=== PATIENT | female | born 1945 | race Caucasian/White ===

== ENCOUNTER 2020-07-27 12:53 | Outpatient (CLI) | payer OTHER, SELFPAY ==
--- NOTE | 2020-07-27 12:58 | ECG_ITS ---
Measurements Intervals [place] Rate: 68 P: 18 CO: 211 QRS: -24 QRSD: 119 T: 20 QT: 396 QTc: 423 Interpretive Statements SINUS RHYTHM WITH FIRST DEGREE AV BLOCK LOW QRS VOLTAGE IN PRECORDIAL LEADS INCOMPLETE RIGHT BUNDLE BRANCH BLOCK VOLTAGE CRITERIA FOR LVH BORDERLINE T WAVE ABNORMALITY- INFERIOR LEADS ABNORMAL ECG Electronically Signed On 07-27-2020 13:14:41 CDT by Jayson Lopes D.O.
== END 2020-07-27 12:54 | disposition home or self-care (01) ==
PROVIDERS: PCP Internal Medicine; Visit Provider Urology
DX: N39.3 Stress incontinence (female) (male) (principal); Z87.891 Personal history of nicotine dependence; I45.10 Unspecified right bundle-branch block
CPT/HCPCS: 87077; 87086; 87088; 93005

== ENCOUNTER 2020-08-01 02:03 | Outpatient (CLI) | payer OTHER, SELFPAY ==
[2020-08-01 18:39] LABS: SARS-CoV-2 RNA PCR Negative
== END 2020-08-01 02:04 | disposition home or self-care (01) ==
LOC: ANHCOVIDDT 02:04
PROVIDERS: PCP Internal Medicine; Visit Provider Urology
DX: Z01.812 Encounter for preprocedural laboratory examination (principal); Z20.828 Contact with and (suspected) exposure to other viral communicable diseases
CPT/HCPCS: 87635; C9803; U0003

== ENCOUNTER 2020-08-03 01:27 | Day surgery (SDC) | payer OTHER, SELFPAY ==
[2020-07-24 11:26] VITALS: BMI 47.9
--- NOTE | 2020-07-29 11:05 | PM.IMHP ---
H&P: HPI History of Present Illness Date/Time: 07/29/20 11:05 Chief complaint: Stress Incontinence Narrative: Gracie Gonzales is a 74 year old female with the stress incontinence Review of Systems Review of Systems: All systems reviewed & are unremarkable except as noted in HPI and below PMFSH Social History Social History Smoking status: Former smoker Tobacco type: cigarettes Additional smoking assessment comments: 1PK/DAY/AGE [age] Substance use: never Spiritual care concerns: No Meds Home Medications and Allergies Home Medications Medication Instructions Recorded Confirmed Type Ca-D3-mag ar-bkws-dim-dsutin-bor 1 tablet PO DAILY 07/24/20 07/24/20 History [Calcium 600-D3 Plus (mag-zinc)] celecoxib 200 mg DAILY 07/24/20 07/24/20 History citalopram 20 mg PO DAILY 07/24/20 07/24/20 History cyanocobalamin (vitamin B-12) 5,000 mcg PO DAILY 07/24/20 07/24/20 History levothyroxine 88 mcg DAILY 07/24/20 07/24/20 History omega 8-wev-znt-fish oil [[place]-3 1 cap PO DAILY 07/24/20 07/24/20 History Fish Oil] Allergies Allergy/AdvReac Type Severity Reaction Status Date / Time No Known Allergies Allergy Verified 07/24/20 11:12 Exam Const: General: no acute distress HENMT: Mouth: Yes moist mucous membranes Eyes: General: appearance normal, both eyes and all related structures Neck: Neck: supple Resp: Effort & Inspection: normal respiratory effort GI: GI Palp: Yes Soft to palpation Skin: General skin exam: normal color Neuro: Cognition (Neuro): normal cognition Extrem: General: normal to inspection Assessment and Plan Assessment and plan (1) FLASH (stress urinary incontinence, female): Code(s): N39.3 - Stress incontinence (female) (male) Status: Acute Assessment and Plan: urethral sling
[2020-08-03] VITALS (8 sets, daily range): BP systolic 97–196; BP diastolic 64–91; PULSE 58–78; RESP 10–18; TEMP 36.1–36.7; O2SAT 98–100
--- NOTE | 2020-08-03 07:19 | WPDHPUPDATE1 ---
History and Physical Update Update Date/Time: 08/03/20 07:19 History and Physical has been reviewed, including an updated exam of the patient. There are NO changes in the patient's condition. Risks, benefits, and alternatives have been discussed and questions answered. Patient agrees to proceed with procedure.
[2020-08-03] MEDS: LACTATED RINGERS 1,000 ML 30 ML IV CONT ×2 (09:20→11:12)
--- NOTE | 2020-08-03 09:25 | P.PNAN_ITS ---
Anes - Initial Pre Proc Eval Procedure: Operation Date: 08/03/20 10:45 Proposed Procedures p Urethral Sling - Wes Peraza MD Date/Time: 08/03/20 09:25 Surgeon: Wes Peraza MD Pre Op Diagnosis: Stress Incontinence Patient Data Age: 74 Gender: F Height: 5 ft 3 in Weight: 122.7 kg Allergies Allergy/AdvReac Type Severity Reaction Status Date / Time No Known Allergies Allergy Verified 08/03/20 09:26 Home Medications Medication Instructions Recorded Confirmed Type Ca-D3-mag mq-rdkp-rbs-dustin-bor 1 tablet PO DAILY 07/24/20 07/24/20 History [Calcium 600-D3 Plus (mag-zinc)] celecoxib 200 mg DAILY 07/24/20 07/24/20 History citalopram 20 mg PO DAILY 07/24/20 07/24/20 History cyanocobalamin (vitamin B-12) 5,000 mcg PO DAILY 07/24/20 07/24/20 History levothyroxine 88 mcg DAILY 07/24/20 07/24/20 History omega 1-afm-owj-fish oil [[place]-3 1 cap PO DAILY 07/24/20 07/24/20 History Fish Oil] Patient hx anesthesia problems: none Family hx anesthesia problems: none [facility] Past Medical History Medical History (Updated 08/03/20 @ 09:26 by Keenan Mcintyre MD) Hypothyroidism Morbid obesity Surgical History Surgical History (Updated 08/03/20 @ 09:28 by Keenan Mcintyre MD) History of section History of total knee arthroplasty Social History Social History Smoking status: Former smoker Tobacco type: cigarettes Additional smoking assessment comments: 1PK/DAY/AGE [age] Alcohol use details: MAYBE 1 GLASS WINE A MONTH Substance use: never Living arrangements: alone Spiritual care concerns: No Anes - Eval Final PreProcedure Day of Procedure 08/03/20 09:25 Patient weight: morbidly obese Heart: regular rate and rhythm Lungs: clear to auscultation Airway: Mallampati scale class II Neurological: alert and oriented Last oral intake: >/= 8 hours ASA classification: III Emergent: no Anesthetic plan: proceed Anesthesia type and monitoring: general LMA and standard monitoring Informed Consent: The patient's anesthetic plan and its attendant risks and benefits were discussed with the patient/family/POA. Questions were solicited and answers provided to the satisfaction of the patient/family/POA.
[2020-08-03] MEDS: ceFAZolin 3 GM/D5W 100 ML 100 ML IVPB (10:08)
[2020-08-03] MEDS: BUPIVACAINE/EPINEPHRINE 0.25% 50 ML VIAL INFILTRATE (10:28)
--- NOTE | 2020-08-03 10:50 | PM.PROC ---
Procedure Note - Detailed Date of procedure: 08/03/20 Pre-op diagnosis: Stress Incontinence Stress urinary incontinence Post-op diagnosis: same Procedure performed: Transobturator Mid-urethral sling Cystoscopy Description of procedure: This is a patient with confirmed stress urinary incontinence. She desires correction. She understands the risks of bleeding, infection, damage to the urinary tract, lack of cure of stress incontinence, recurrence of stress incontinence, postoperative voiding dysfunction including incontinence and retention, need for ancillary procedures to loosen remove the sling, postoperative voiding dysfunction including retention and overactive bladder, hip and leg pain, dyspareunia, mesh related complications including exposure and extrusion. She agrees to proceed. She understands it will not help overactive bladder symptoms if present. She was correctly identified and informed consent obtained. She is brought to the operating room. She was given appropriate anesthesia. She was placed in the dorsal lithotomy position. All pressure points were padded. She was given appropriate perioperative antibiotics and a time-out performed. A De Jesus catheter is placed. I marked out the thigh incisions anesthetize the skin and made those incisions. I anesthetized the anterior vaginal wall over the mid urethra. I made a 1 cm incision. I dissected out laterally taking great care not to injure the urethra or the vaginal wall. Passed the helical trocars 1st on the left and then on the right from the thigh incision towards the vaginal incision. Sling was connected to the trocars and brought out through the thigh incision. I tensioned the sling appropriately. I cut and removed the plastic sheaths. I closed the incision with 2 0 Vicryl. I then performed cystoscopy. There was no surgical artifact or abnormalities inside the bladder. The urethra was normal without surgical artifact. I cut the excess sling material. I closed the incisions with glue. She was awakened and transferred to the PACU in stable condition. Implants: Mid urethral sling Surgeon: Wes Peraza MD Drains: No Packing: No Pathology: none sent Complications: No immediate complications Condition: stable Disposition: PACU
== END 2020-08-03 12:20 | disposition home or self-care (01) ==
PROVIDERS: PCP Internal Medicine; Visit Provider Urology
PROC: (CPT 57288; principal; 2020-08-03 10:45)
DX: N39.3 Stress incontinence (female) (male) (principal); Z87.891 Personal history of nicotine dependence; E03.9 Hypothyroidism, unspecified; E66.01 Morbid (severe) obesity due to excess calories; Z68.42 Body mass index [BMI] 45.0-49.9, adult
CPT/HCPCS: 57288; A9270; C1771; J0690; J2370; J2704; J3010; J7030; J7120

== ENCOUNTER 2022-05-19 00:17 | Day surgery (SDC) | payer OTHER, SELFPAY ==
[2022-05-02 13:18] VITALS: BMI 42.3
--- NOTE | 2022-05-19 08:36 | P.PNAN_ITS ---
Anes - Initial Pre Proc Eval Procedure: Operation Date: 05/19/22 11:30 Proposed Procedures p Screening Colonoscopy - Jcarlos Park MD Date/Time: 05/19/22 08:36 Surgeon: Jcarlos Park MD Pre Op Diagnosis: hx of colon polyps Patient Data Age: 76 Gender: F Height: 1.63 m Weight: 112 kg Allergies Allergy/AdvReac Type Severity Reaction Status Date / Time No Known Allergies Allergy Verified 05/19/22 09:35 Home Medications Medication Instructions Recorded Confirmed Type Ca 600 mg-D3 20 mcg-mag oxide 50 1 tablet PO DAILY 07/24/20 05/19/22 History zc-Ei-rpeyvr-manganese-boron tablet (Calcium 600-D3 Plus (mag-zinc)) celecoxib 200 mg capsule 200 mg DAILY 07/24/20 05/19/22 History citalopram 20 mg tablet 20 mg PO DAILY 07/24/20 05/19/22 History levothyroxine 100 mcg tablet 88 mcg DAILY 07/24/20 05/19/22 History omega 7-nvy-euu-fish oil 910 1 cap PO DAILY 07/24/20 05/19/22 History mg-1,400 mg capsule ([place]-3 Fish Oil) cholecalciferol (vitamin D3) 125 125 mcg PO DAILY 03/06/22 05/19/22 History mcg (5,000 unit) capsule vitamin E (dl, acetate) 450 mg 450 mg PO DAILY 03/06/22 05/19/22 History (1,000 unit) capsule sodium sul 1.479 gram-potas ch See Rx Instructions .Route 03/17/22 05/19/22 Rx 0.188 gram-magnes sul 0.225 gram .COMPLEX #24 tabs tablet (Sutab) Patient hx anesthesia problems: none Family hx anesthesia problems: none Results Review: All pre-operative results and documents have been reviewed as part of the pre- operative evaluation. [facility] Past Medical History Medical History (Updated 05/19/22 @ 08:36 by Aleksander Giles DO) Anxiety Colon polyp Hypothyroidism Morbid obesity Surgical History Surgical History (Updated 05/19/22 @ 08:36 by Aleksander Giles DO) History of section History of hysterectomy History of total knee arthroplasty Social History Social History (Reviewed 03/06/22 @ 09:22 by JAIR Guillen Smoking packs per day: 1 Smoking cigarettes per day: 20.0 Years smoked: 28 Smoking pack-years: 28.00 Smoking status: Former smoker Tobacco type: cigarettes Additional smoking assessment comments: 1PK/DAY/AGE [age] Alcohol intake: current Alcohol use details: rare use Substance use: never Substance use type: does not use Living arrangements: alone Spiritual care concerns: No Anes - Eval Final PreProcedure Day of Procedure 05/19/22 08:36 Patient weight: morbidly obese Heart: regular rate and rhythm Lungs: clear to auscultation Airway: Mallampati scale class II Neurological: alert and oriented Last oral intake: >/= 8 hours ASA classification: III Emergent: no Anesthetic plan: proceed Anesthesia type and monitoring: general GIVS and standard monitoring Results Review: All pre-operative results and documents have been reviewed as part of the pre- operative evaluation. Informed Consent: The patient's anesthetic plan and its attendant risks and benefits were discussed with the patient/family/POA. Questions were solicited and answers provided to the satisfaction of the patient/family/POA.
[2022-05-19 09:36] VITALS: BP 135/76; PULSE 61; RESP 16; TEMP 36.6; O2SAT 98
[2022-05-19] MEDS: LACTATED RINGERS 1,000 ML 150 ML IV CONT (09:39)
--- NOTE | 2022-05-19 10:00 | PM.HPGS ---
History of Present Illness History of Present Illness Consent: Risks, benefits, and alternatives have been discussed and questions answered. Patient agrees to proceed with procedure. Chief complaint: hx of colon polyps Narrative: Gracie Gonzales is a 76 year old female with last colonoscopy 2017, previously she had polyp. Review of Systems Constitutional: Constitutional: Denies headache(s) and Denies weakness Eyes: Eyes: Denies blurry vision ENT: Reports Normal hearing present, Denies headache(s) and Denies neck pain Cardiovascular: Cardiovascular: Denies chest pain and Denies dyspnea Respiratory: Respiratory: Denies dyspnea Gastrointestinal: Gastrointestinal: Reports no additional gastrointestinal complaints Genitourinary: Genitourinary: Denies dysuria Musculoskeletal: Musculoskeletal: Denies neck pain Integumentary/Breasts: Skin/Breast: Denies dry skin Neurologic: Reports Normal hearing present, Denies headache(s) and Denies weakness Psychiatric: Psychiatric: Denies anxiety Endocrine: Endocrine: Denies change in body appearance Hematologic/Lymphatic: Hematologic/Lymphatic: Denies easy bleeding Allergic/Immunologic: Allergic/Immunologic: Denies urticaria PMFSH Past Medical History Medical History (Updated 05/19/22 @ 08:36 by Aleksander Giles DO) Anxiety Colon polyp Hypothyroidism Morbid obesity Surgical History Surgical History (Updated 05/19/22 @ 08:36 by Aleksander Giles DO) History of section History of hysterectomy History of total knee arthroplasty Social History Social History Smoking packs per day: 1 Smoking cigarettes per day: 20.0 Years smoked: 28 Smoking pack-years: 28.00 Smoking status: Former smoker Tobacco type: cigarettes Additional smoking assessment comments: 1PK/DAY/AGE [age] Alcohol intake: current Alcohol use details: rare use Substance use: never Substance use type: does not use Living arrangements: alone Spiritual care concerns: No Meds Home Medications and Allergies Home Medications Medication Instructions Recorded Confirmed Type Ca 600 mg-D3 20 mcg-mag oxide 50 1 tablet PO DAILY 07/24/20 05/19/22 History cb-Pu-gpyvvu-manganese-boron tablet (Calcium 600-D3 Plus (mag-zinc)) celecoxib 200 mg capsule 200 mg DAILY 07/24/20 05/19/22 History citalopram 20 mg tablet 20 mg PO DAILY 07/24/20 05/19/22 History levothyroxine 100 mcg tablet 88 mcg DAILY 07/24/20 05/19/22 History omega 8-rdp-wcf-fish oil 910 1 cap PO DAILY 07/24/20 05/19/22 History mg-1,400 mg capsule ([place]-3 Fish Oil) cholecalciferol (vitamin D3) 125 125 mcg PO DAILY 03/06/22 05/19/22 History mcg (5,000 unit) capsule vitamin E (dl, acetate) 450 mg 450 mg PO DAILY 03/06/22 05/19/22 History (1,000 unit) capsule sodium sul 1.479 gram-potas ch See Rx Instructions .Route 03/17/22 05/19/22 Rx 0.188 gram-magnes sul 0.225 gram .COMPLEX #24 tabs tablet (Sutab) Allergies Allergy/AdvReac Type Severity Reaction Status Date / Time No Known Allergies Allergy Verified 05/19/22 09:35 Vital Signs Vital Signs - 24 hr 05/19/22 09:36 Temperature 98 F Pulse Rate 61 Respiratory Rate 16 Blood Pressure 135/76 Pulse Oximetry 98 Oxygen Delivery Room Air Exam Const: General: comfortable and no acute distress HENMT: General nose exam: Normal nares present Eyes: General: appearance normal, both eyes and all related structures Neck: Neck: no JVD Resp: Auscultation: clear to auscultation bilaterally Cardio: Rate: regular rate Rhythm: regular rhythm GI: Inspection: non-distended GI Palp: Yes Soft to palpation Skin: General skin exam: normal color Neuro: General: gait normal Speech: normal speech Extrem: General: normal to inspection Psych: Mental Status: mental status grossly normal Assessment and Plan Assessment and plan (1) Colon polyp:
[2022-05-19 10:26] VITALS: BP 102/56; PULSE 60; RESP 18; O2SAT 99
[2022-05-19 10:36] VITALS: BP 116/62; PULSE 59; RESP 18; O2SAT 99
[2022-05-19 10:46] VITALS: BP 132/63; PULSE 55; RESP 18; O2SAT 100
--- NOTE | 2022-05-19 10:50 | SUR.PHASEII ---
RN called patient's family member Kelsey to let her know the patient is ready for sisal picker. Kelsey would not give an ETA, but said she would be on her way soon. RN notified the patient
== END 2022-05-19 11:14 | disposition home or self-care (01) ==
PROVIDERS: PCP Internal Medicine; Visit Provider Internal Medicine Gastroenterology
PROC: 0DJD8ZZ Inspection of Lower Intestinal Tract, Via Natural or Artificial Opening Endoscopic (ICD-10-PCS; CPT 45378; principal; 2022-05-19 11:30)
DX: Z12.11 Encounter for screening for malignant neoplasm of colon (principal); K57.30 Diverticulosis of large intestine without perforation or abscess without bleeding; K63.5 Polyp of colon; K64.8 Other hemorrhoids; E03.9 Hypothyroidism, unspecified; F41.9 Anxiety disorder, unspecified; E66.01 Morbid (severe) obesity due to excess calories; Z68.41 Body mass index [BMI] 40.0-44.9, adult; Z87.891 Personal history of nicotine dependence
CPT/HCPCS: 45380; 88305; J2704; J7120